=== PATIENT | female | born 1960 | race Caucasian/White ===

== ENCOUNTER 2018-12-28 02:44 | Emergency (ER) | payer MEDICAID ==
[~2018-12-28] VITALS: Ht 180.3 cm; Wt 131.5 kg
[2018-12-28 02:53] VITALS: BP_SYST 152
--- NOTE | 2018-12-28 03:00 | NUR ---
Pt placed to ER bed 07. Pt c/o Right foot pain x 3 weeks, denies trauma or recent injury, no swelling noted.
[2018-12-28] MEDS ORDERED: IBUPROFEN 800 MG TABLET PO ONE (03:30)
--- NOTE | 2018-12-28 03:33 | NUR ---
X-ray at bedside.
[2018-12-28] MEDS ORDERED: IBUPROFEN 800 MG TABLET ONE (03:35)
--- NOTE | 2018-12-28 03:50 | NUR ---
Dr. Ratliff at bedside.
[2018-12-28 03:58] VITALS: BP_SYST 124
--- NOTE | 2018-12-28 03:58 | NUR ---
Patient given written and verbal discharge instructions and verbalizes understanding. ER MD discussed with patient the results and treatment provided. Patient in stable condition. ID arm band removed. No Rx given. Patient educated on pain management and to follow up with PMD. Pain Scale 1/10. Opportunity for questions provided and answered. Medication side effect fact sheet provided.
[2018-12-28] MEDS: IBUPROFEN 800 MG TABLET PO ONE (06:34)
== END 2018-12-28 03:58 | disposition home or self-care (01) ==
LOC: SED 02:44
DX: M79.671 Pain in right foot (principal); E78.00 Pure hypercholesterolemia, unspecified; F32.9 Major depressive disorder, single episode, unspecified; F41.9 Anxiety disorder, unspecified; I10 Essential (primary) hypertension; M19.90 Unspecified osteoarthritis, unspecified site; Z88.5 Allergy status to narcotic agent
CPT/HCPCS: 99283